=== PATIENT | male | born 1980 | race Caucasian/White ===

== ENCOUNTER 2017-04-11 06:54 | Emergency (ER) | payer SELFPAY ==
[~2017-04-11] VITALS: Ht 188 cm; Wt 97.5 kg
[~2017-04-11 06:54] MED LIST: CYCL10TA2 PO; HYDR-971 PO; PRED50TA PO
--- NOTE | 2017-04-11 07:25 | PHYS DOC ---
Past Medical History Past Medical History: Arthritis Additional Past Medical Histor: "bulging disc in my back" Past Surgical History: Other Additional Past Surgical Histo: Lt wrist,cleft lip/palate Alcohol Use: None Drug Use: None Adult General Chief Complaint Chief Complaint: DIZZY/LIGHT HEADED HPI HPI Patient is a 36 year old male who presents with syncope. Patient states he has been feeling lightheaded for several days. Yesterday he experienced lightheadedness followed by syncope. He reports fall but sustained no injury, denies any pain at this time. He still feels lightheaded and fatigued today. Denies associated chest pain, palpitations, headache, extremity numbness or weakness. Denies vertigo, denies seizure activity or tongue biting/ incontinence. Denies recent illness including nausea, vomiting, diarrhea. 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 The temperatures have been in the 90s recently. Denies any known past medical history. Multiple paternal relatives with fatal MD in their 50s, no known history of sudden cardiac at age less than 50. Does not have a PCP. Review of Systems Review of Systems Constitutional: Denies fever or chills, reports syncope Eyes: Denies change in visual acuity HENT: Denies nasal congestion or sore throat Respiratory: Denies cough or shortness of breath Cardiovascular: Denies chest pain or edema GI: Denies abdominal pain, nausea, vomiting, or diarrhea Musculoskeletal: Denies back pain or joint pain Integument: Denies rash or skin lesions Neurologic: Denies headache, focal weakness or sensory changes Current Medications Current Medications Current Medications Medications (Trade) Dose Ordered Sig/Dillan Start Time Stop Time Status Last Admin Dose Admin Potassium Chloride (KCl Oral Soln) 40 meq 1X ONCE 04/11/17 08:00 04/11/17 08:01 DC 04/11/17 07:58 40 MEQ Sodium Chloride 1,000 ml @ 1,000 mls/hr 1X ONCE 04/11/17 07:30 04/11/17 08:29 DC 04/11/17 07:25 1,000 MLS/HR Allergies Allergies Allergies Coded Allergies Type Severity Reaction Last Updated Verified NSAIDS (Non-Steroidal Anti-Inflamma Allergy Intermediate 07/13/16 Yes codeine Allergy Mild vomiting 03/28/15 Yes Physical Exam Physical Exam Constitutional: Well developed, well nourished, no acute distress, non-toxic appearance. HENT: Normocephalic, atraumatic, bilateral external ears normal, oropharynx moist, no tongue bite [place], nose normal. Eyes: PERRLA, EOMI, conjunctiva normal, no discharge. Neck: supple, no stridor. no midline c-spine tenderness. Cardiovascular: RRR, no murmurs, no edema. Lungs & Thorax: LCTAB, no wheezing, no respiratory distress. Abdomen: soft, nontender, nondistended. Skin: Warm, dry, no erythema, no rash. Back: No tenderness. Extremities: No tenderness, no edema. Neurologic: Alert and oriented X 3, CN2-12 grossly intact, symmetric strength/ sensation to UE & LE, no focal deficits noted. Psychologic: Affect normal, judgement normal, mood normal. Current Patient Data Vital Signs Vital Signs Date Time Temp Pulse Resp B/P (MAP) Pulse Ox O2 Delivery O2 Flow Rate FiO2 04/11/17 08:02 78 19 131/71 (91) 100 Room Air 04/11/17 07:07 99.2 99.2 Lab Values Laboratory Tests Test 04/11/17 07:01 04/11/17 07:19 Urine Collection Type Unknown Urine Color Yellow Urine Clarity Clear Urine pH 6.0 Urine Specific [place] 1.015 Urine Protein Negative mg/dL (NEG-TRACE) Urine Glucose (UA) Negative mg/dL (NEG) Urine Ketones (Stick) Negative mg/dL (NEG) Urine Blood Negative (NEG) Urine Nitrite Negative (NEG) Urine Bilirubin Negative (NEG) Urine Urobilinogen Dipstick 0.2 mg/dL (0.2 mg/dL) Urine Leukocyte Esterase Negative (NEG) Urine RBC 0 /HPF (0-2) Urine WBC 1-4 /HPF (0-4) Urine Squamous Epithelial Cells Occ /LPF Urine Bacteria Few /HPF (0-FEW) Urine Mucus Slight /LPF White Blood Count 8.9 x10^3/uL (4.0-11.0) Red Blood Count 4.44 x10^6/uL (4.30-5.70) Hemoglobin 13.2 g/dL (13.0-17.5) Hematocrit 39.2 % (39.0-53.0) Mean Corpuscular Volume 88 fL (79-100) Mean Corpuscular Hemoglobin 30 pg (25-35) Mean Corpuscular Hemoglobin Concent 34 g/dL (31-37) Red Cell Distribution Width 13.1 % (11.5-14.5) Platelet Count 197 x10^3/uL (140-400) Neutrophils (%) (Auto) 69 % (31-73) Lymphocytes (%) (Auto) 18 % (24-48) L Monocytes (%) (Auto) 9 % (0-9) Eosinophils (%) (Auto) 4 % (0-3) H Basophils (%) (Auto) 1 % (0-3) Neutrophils # (Auto) 6.1 x10^3uL (1.8-7.7) Lymphocytes # (Auto) 1.5 x10^3/uL (1.0-4.8) Monocytes # (Auto) 0.8 x10^3/uL (0.0-1.1) Eosinophils # (Auto) 0.3 x10^3/uL (0.0-0.7) Basophils # (Auto) 0.1 x10^3/uL (0.0-0.2) Sodium Level 141 mmol/L (136-145) Potassium Level 3.1 mmol/L (3.5-5.1) L Chloride Level 102 mmol/L (98-107) Carbon Dioxide Level 30 mmol/L (21-32) Anion Gap 9 (6-14) Blood Urea Nitrogen 15 mg/dL (8-26) Creatinine 0.8 mg/dL (0.7-1.3) Estimated GFR (Cockcroft-Gault) 108.8 BUN/Creatinine Ratio 19 (6-20) Glucose Level 164 mg/dL (70-99) H Calcium Level 8.5 mg/dL (8.5-10.1) Total Bilirubin 0.2 mg/dL (0.2-1.0) Aspartate Amino Transferase (AST) 51 U/L (15-37) H Alanine Aminotransferase (ALT) 47 U/L (16-63) Alkaline Phosphatase 69 U/L (46-116) Troponin I Quantitative < 0.017 ng/mL (0.000-0.055) JQ-Kil-V-Type Natriuretic Peptide 148 pg/mL (0-124) H Total Protein 7.1 g/dL (6.4-8.2) Albumin 3.6 g/dL (3.4-5.0) Albumin/Globulin Ratio 1.0 (1.0-1.7) Laboratory Tests 04/11/17 07:19 Laboratory Tests 04/11/17 07:19 EKG EKG interpreted by me: NSR rate 88, no acute ST/T wave changes, QTc prolonged 478 ms, no ectopy.[] Radiology/Procedures Radiology/Procedures [] Course & Med Decision Making Course & Med Decision Making Pertinent Labs and Imaging studies reviewed. (See chart for details) The patient presents with syncope and lightheadedness. Slightly hypertensive on arrival, improving during his stay. Vitals otherwise stable, ambulates with steady gait without symptoms. Labs significant for hypokalemia. Oral replacement given in the emergency department. QTc slightly prolonged on EKG. No arrhythmia on cardiac telemetry here. Discussed with Parish Denis of cardiology to try to arrange urgent follow-up. He agrees that outpatient workup is appropriate. Patient can call for an appointment with Dr. Jerry and can likely be seen this week. He understands need for follow-up for potential cardiac etiology of syncope. Discussed recommendations with patient. Would recommend rest, minimize heat exposure or take breaks indoors, drink fluids to stay hydrated, eat regular meals. Return to the emergency department for recurrent syncope, severe chest pain or shortness of breath, heart palpitations , any otherwise worsening condition. Discharged home in stable condition. [] Dragon Disclaimer Dragon Disclaimer This electronic medical record was generated, in whole or in part, using a voice recognition dictation system. Departure Departure Impression: Primary Impression: Syncope Disposition: 01 HOME, SELF-CARE Condition: STABLE Referrals: UNKNOWN PCP NAME (PCP) JUD JERRY MD Patient Instructions: Syncope, [id number] Additional Instructions: You were seen in the emergency department today for fainting or syncope. You had low potassium. Your EKG was slightly abnormal. Be sure to drink fluids to stay hydrated. Take breaks in the cool indoors. Be sure to eat regular meals. Please call the cardiology clinic to schedule a follow-up appointment within the next week. Return to the emergency department for recurrent fainting episodes, chest pain, palpitations, any otherwise worsening condition. SHYANN ROSSI MD Apr 11, 2017 07:25
[2017-04-11 07:28] LABS: BASO # 0.1 x10^3/uL (0.0-0.2); BASO % 1 % (0-3); EOS % 4 % (0-3); HEMATOCRIT 39.2 % (39.0-53.0); HEMOGLOBIN 13.2 g/dL (13.0-17.5); LYMPH # 1.5 x10^3/uL (1.0-4.8); LYMPH % 18 % (24-48); MEAN CORPUSCULAR HEMOGLOBIN 30 pg (25-35); MEAN CORPUSCULAR HGB CONC 34 g/dL (31-37); MEAN CORPUSCULAR VOLUME 88 fL (79-100); MONO % 9 % (0-9); NEUT % 69 % (31-73); PLATELET COUNT 197 x10^3/uL (140-400); RED BLOOD COUNT 4.44 x10^6/uL (4.30-5.70); RED CELL DISTRIBUTION WIDTH 13.1 % (11.5-14.5); WHITE BLOOD COUNT 8.9 x10^3/uL (4.0-11.0)
[2017-04-11 07:30] LABS: BILIRUBIN,URINE NEGATIVE (NEG); GLUCOSE,URINE NEGATIVE (NEG); NITRITE,URINE NEGATIVE (NEG); PROTEIN,URINE NEGATIVE (NEG-TRACE); UROBILINOGEN,URINE 0.2 mg/dL (0.2 mg/dL)
[2017-04-11] MEDS ORDERED: IV NORMAL SALINE 1000ML BAG 1,000 ML IV ONE (07:30)
[2017-04-11 07:38] LABS: BACTERIA,URINE FEW /HPF (0-FEW); RBC,URINE 0 /HPF (0-2); SQUAMOUS EPITHELIAL CELL,UR OCC /LPF
[2017-04-11 07:40] LABS: CALCIUM 8.5 mg/dL (8.5-10.1); CREATININE 0.8 mg/dL (0.7-1.3); GFR 108.8; POTASSIUM 3.1 mmol/L (3.5-5.1)
[2017-04-11 07:46] LABS: ALBUMIN 3.6 g/dL (3.4-5.0); TOTAL BILIRUBIN 0.2 mg/dL (0.2-1.0); TOTAL PROTEIN 7.1 g/dL (6.4-8.2)
[2017-04-11] MEDS ORDERED: POTASSIUM CHLORIDE 20 MEQ/15 ML ORAL LIQUID. PO ONE (08:00)
[2017-04-11 08:02] VITALS: BP 131/71
--- NOTE | 2017-04-11 09:28 | EKG ---
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
== END 2017-04-11 08:38 | disposition home or self-care (01) ==
LOC: ER 06:54
DX: R55 Syncope and collapse (principal); M19.90 Unspecified osteoarthritis, unspecified site; Z88.6 Allergy status to analgesic agent; Z88.5 Allergy status to narcotic agent
CPT/HCPCS: 36415; 80053; 81001; 83880; 84484; 85027; 93005; 96360; 99285; J7030

== ENCOUNTER 2017-07-01 19:11 | Emergency (ER) | payer SELFPAY ==
[~2017-07-01] VITALS: Ht 188 cm; Wt 95.3 kg
[2017-07-01 19:17] VITALS: BP 159/86
[2017-07-01 19:40] LABS: BASO # 0.1 x10^3/uL (0.0-0.2); BASO % 1 % (0-3); EOS % 3 % (0-3); HEMATOCRIT 48.3 % (39.0-53.0); HEMOGLOBIN 16.1 g/dL (13.0-17.5); LYMPH # 1.8 x10^3/uL (1.0-4.8); LYMPH % 28 % (24-48); MEAN CORPUSCULAR HEMOGLOBIN 29 pg (25-35); MEAN CORPUSCULAR HGB CONC 33 g/dL (31-37); MEAN CORPUSCULAR VOLUME 88 fL (79-100); MONO % 7 % (0-9); NEUT % 62 % (31-73); PLATELET COUNT 249 x10^3/uL (140-400); RED BLOOD COUNT 5.48 x10^6/uL (4.30-5.70); RED CELL DISTRIBUTION WIDTH 13.9 % (11.5-14.5); WHITE BLOOD COUNT 6.5 x10^3/uL (4.0-11.0)
[2017-07-01 19:54] LABS: CALCIUM 8.8 mg/dL (8.5-10.1); GFR 83.6; POTASSIUM 3.9 mmol/L (3.5-5.1)
[2017-07-01 20:00] LABS: ALBUMIN 3.9 g/dL (3.4-5.0); ALBUMIN/GLOBULIN RATIO 1.1 (1.0-1.7); TOTAL BILIRUBIN 0.3 mg/dL (0.2-1.0); TOTAL PROTEIN 7.4 g/dL (6.4-8.2)
[2017-07-01] MEDS ORDERED: CONTRAST GIVEN MC PRN (20:15)
[2017-07-01] MEDS ORDERED: IV NORMAL SALINE 1000ML BAG 1,000 ML IV ONE (20:15)
[2017-07-01] MEDS ORDERED: ONDANSETRON PF 4 MG/2 ML VIAL. IV ONE (20:15)
[2017-07-01] MEDS ORDERED: HYDROmorphone 2 MG/ML VIAL IV ONE (20:15)
[2017-07-01] MEDS ORDERED: IOHEXOL 300 MG/ML 75 ML VIAL IV ONE (20:30)
[2017-07-01 20:42] LABS: BILIRUBIN,URINE NEGATIVE (NEG); GLUCOSE,URINE NEGATIVE (NEG); NITRITE,URINE NEGATIVE (NEG); PH,URINE 7.5; PROTEIN,URINE NEGATIVE (NEG-TRACE); UROBILINOGEN,URINE 0.2 mg/dL (0.2 mg/dL)
--- NOTE | 2017-07-01 20:42 | RAD ---
CT SCAN OF THE ABDOMEN AND PELVIS WITH IV CONTRAST. History: Abdominal pain Comparison:None. Procedure: Contiguous axial images of the abdomen and pelvis were performed after the administration of 75 cc of Omni 300 IV contrast and without oral contrast. CT Abdomen with contrast: Findings: Liver: Unremarkable Spleen: Unremarkable Pancreas: Unremarkable Adrenal Glands: Unremarkable Kidneys: Unremarkable There is no mass or lymphadenopathy. There is no free air. There is no free fluid. Impression: No acute findings. End Impression CT Pelvis with Contrast: Findings: The urinary bladder appears normal. There is no free fluid. There is no lymphadenopathy. The appendix is normal. Impression: No acute findings. PQRS Compliance Statement: One or more of the following individualized dose reduction techniques were utilized for this examination: 1. Automated exposure control 2. Adjustment of the mA and/or kV according to patient size 3. Use of iterative reconstruction technique Electronically signed by: Jorge Lawrence III, MD (07/01/2017 8:39 PM) [id number]
[2017-07-01 20:51] LABS: BACTERIA,URINE 0 /HPF (0-FEW); RBC,URINE 0 /HPF (0-2); WBC,URINE 0 /HPF (0-4)
[2017-07-01] MEDS ORDERED: OMEP20TA63 PO (21:27)
[2017-07-01] MEDS ORDERED: ONDA4TAB10 SL (21:27)
--- NOTE | 2017-07-01 21:27 | PHYS DOC ---
Past Medical History Past Medical History: Arthritis Additional Past Medical Histor: "bulging disc in my back" Past Surgical History: Other Additional Past Surgical Histo: Lt wrist,cleft lip/palate Alcohol Use: None Drug Use: None Adult General Chief Complaint Chief Complaint: ABDOMINAL PAIN HPI HPI Patient is a 37 year old woman who presents here today secondary to left upper quadrant and left flank abdominal pain that he thinks is secondary to his kidney. Patient denies any past medical history. He reports no history of hypertension diabetes lung liver or kidney problems. Patient has any strokes or MIs in the past. Patient has any kidney stones or kidney infections in the past. Patient denies any prior surgeries. Patient is allergic to any medications. Patient reports he smokes drove her denies any alcohol or drugs. Patient reports she thinks vitamin told him ulcer several years ago. Patient has any fevers shakes chills dysuria frequency urgency hematuria. Patient has any chest pain or shortness of breath. Patient reports she's had nausea and vomiting with no diarrhea. Patient reports his abdominal pain started approximately 2 days ago. Patient has any sick family contacts. Patient denies any hematemesis or coffee-ground emesis. Patient denies any bright red blood per rectum or melena. Patient denies any exacerbating or relieving factors. Review of systems: Constitutional: Denies fever or chills Eyes: Denies change in visual acuity, redness, or eye pain HENT: Denies nasal congestion or sore throat All the other review systems are negative except as documented in the history of present illness portion. Physical exam: Constitutional: Well developed, well nourished, no acute distress, non-toxic appearance. HENT: Normocephalic, atraumatic, bilateral external ears normal, nose normal. Eyes:EOMI, conjunctiva normal, no discharge. Neck: Normal range of motion, no tenderness, supple, no stridor. Cardiovascular:Heart rate regular rhythm, Lungs & Thorax: Bilateral breath sounds clear to auscultation Abdomen: Bowel sounds normal, soft, no tenderness, no masses, no pulsatile masses. Skin: Warm, dry, no erythema, no rash. Back: No tenderness, no CVA tenderness. Extremities: No tenderness, no cyanosis, no clubbing, ROM intact, no edema. Neurologic: Alert and oriented X 3, normal motor function, normal sensory function, no focal deficits noted. Psychologic: Affect normal, judgement normal, mood normal. Patient's ER physical exam is significant for tenderness to palpation to his left flank and left upper quadrant. Patient has normal active bowel sounds. Patient does not present with any signs or symptoms of be consistent with an acute surgical abdomen. Patient's ER workup is been unremarkable for any acute pathology. Patient had a normal CBC, CMP and urinalysis. Patient's lipase was within normal limits. Patient has CT scan with IV contrast which revealed no acute pathology. On the ER the patient was given IV fluids Zofran and Dilaudid with some relief in his discomfort. Assessment and plan Nonspecific abdominal pain with nonspecific left flank pain. Patient is clinically and hemodynamically stable. Patient's ER workup is been unremarkable thus far. Patient has had a normal CBC, CMP and urinalysis. Patient's symptoms are not consistent with appendicitis, small bowel obstruction, pancreatitis, bleeding peptic ulcer. Patient's symptoms may be secondary to gastritis versus viral gastroenteritis. Patient will be discharged home with Prilosec, Zofran, Ultram and will be asked to be reevaluated by his primary care physician in one to 2 days. Return precautions were discussed with the patient. Patient understands he will need to return the ER if symptoms worsen, vomiting up any blood, inability to eat. Is currently in agreement with the plan and does not feel that admission is 14 at this time either. Current Medications Current Medications Current Medications Medications (Trade) Dose Ordered Sig/[facility] Start Time Stop Time Status Last Admin Dose Admin Hydromorphone HCl (Dilaudid) 1 mg 1X ONCE 07/01/17 20:15 07/01/17 20:16 DC 07/01/17 19:53 1 MG Info (Do NOT chart on this entry -- for MONITORING) 1 each PRN DAILY PRN 07/01/17 20:15 07/03/17 20:14 Iohexol (Omnipaque 300 Mg/ml) 75 ml 1X ONCE 07/01/17 20:30 07/01/17 20:31 DC 07/01/17 20:24 75 ML Ondansetron HCl (Zofran) 4 mg 1X ONCE 07/01/17 20:15 07/01/17 20:16 DC 07/01/17 19:52 4 MG Pantoprazole Sodium (Protonix) 40 mg 1X ONCE 07/01/17 21:30 07/01/17 21:31 Sodium Chloride 1,000 ml @ 1,000 mls/hr 1X ONCE 07/01/17 20:15 07/01/17 21:14 07/01/17 19:52 1,000 MLS/HR Allergies Allergies Allergies Coded Allergies Type Severity Reaction Last Updated Verified NSAIDS (Non-Steroidal Anti-Inflamma Allergy Intermediate 07/13/16 Yes codeine Allergy Mild vomiting 03/28/15 Yes Current Patient Data Vital Signs Vital Signs Date Time Temp Pulse Resp B/P (MAP) Pulse Ox O2 Delivery O2 Flow Rate FiO2 07/01/17 19:53 18 100 Room Air 07/01/17 19:17 97.7 85 159/86 (110) 97.7 Lab Values Laboratory Tests Test 07/01/17 19:25 07/01/17 20:35 White Blood Count 6.5 x10^3/uL (4.0-11.0) Red Blood Count 5.48 x10^6/uL (4.30-5.70) Hemoglobin 16.1 g/dL (13.0-17.5) Hematocrit 48.3 % (39.0-53.0) Mean Corpuscular Volume 88 fL (79-100) Mean Corpuscular Hemoglobin 29 pg (25-35) Mean Corpuscular Hemoglobin Concent 33 g/dL (31-37) Red Cell Distribution Width 13.9 % (11.5-14.5) Platelet Count 249 x10^3/uL (140-400) Neutrophils (%) (Auto) 62 % (31-73) Lymphocytes (%) (Auto) 28 % (24-48) Monocytes (%) (Auto) 7 % (0-9) Eosinophils (%) (Auto) 3 % (0-3) Basophils (%) (Auto) 1 % (0-3) Neutrophils # (Auto) 4.0 x10^3uL (1.8-7.7) Lymphocytes # (Auto) 1.8 x10^3/uL (1.0-4.8) Monocytes # (Auto) 0.4 x10^3/uL (0.0-1.1) Eosinophils # (Auto) 0.2 x10^3/uL (0.0-0.7) Basophils # (Auto) 0.1 x10^3/uL (0.0-0.2) Sodium Level 143 mmol/L (136-145) Potassium Level 3.9 mmol/L (3.5-5.1) Chloride Level 104 mmol/L (98-107) Carbon Dioxide Level 33 mmol/L (21-32) H Anion Gap 6 (6-14) Blood Urea Nitrogen 13 mg/dL (8-26) Creatinine 1.0 mg/dL (0.7-1.3) Estimated GFR (Cockcroft-Gault) 83.6 BUN/Creatinine Ratio 13 (6-20) Glucose Level 93 mg/dL (70-99) Calcium Level 8.8 mg/dL (8.5-10.1) Total Bilirubin 0.3 mg/dL (0.2-1.0) Aspartate Amino Transferase (AST) 21 U/L (15-37) Alanine Aminotransferase (ALT) 39 U/L (16-63) Alkaline Phosphatase 95 U/L (46-116) Troponin I Quantitative < 0.017 ng/mL (0.000-0.055) Total Protein 7.4 g/dL (6.4-8.2) Albumin 3.9 g/dL (3.4-5.0) Albumin/Globulin Ratio 1.1 (1.0-1.7) Lipase 153 U/L (73-393) Urine Collection Type Unknown Urine Color Yellow Urine Clarity Clear Urine pH 7.5 Urine Specific [place] <=1.005 Urine Protein Negative mg/dL (NEG-TRACE) Urine Glucose (UA) Negative mg/dL (NEG) Urine Ketones (Stick) Negative mg/dL (NEG) Urine Blood Negative (NEG) Urine Nitrite Negative (NEG) Urine Bilirubin Negative (NEG) Urine Urobilinogen Dipstick 0.2 mg/dL (0.2 mg/dL) Urine Leukocyte Esterase Negative (NEG) Urine RBC 0 /HPF (0-2) Urine WBC 0 /HPF (0-4) Urine Bacteria 0 /HPF (0-FEW) Laboratory Tests 07/01/17 19:25 Laboratory Tests 07/01/17 19:25 EKG EKG [] Radiology/Procedures Radiology/Procedures [] Course & Med Decision Making Course & Med Decision Making Pertinent Labs and Imaging studies reviewed. (See chart for details) [] Dragon Disclaimer Dragon Disclaimer This electronic medical record was generated, in whole or in part, using a voice recognition dictation system. Departure Departure Impression: Primary Impression: Abdominal pain Disposition: 01 HOME, SELF-CARE Condition: IMPROVED Referrals: NO PCP (PCP) Patient Instructions: Abdominal Pain (Nonspecific), Gastritis, Adult Scripts Ondansetron (ZOFRAN ODT) 4 Mg Tab.rapdis 1 TAB SL Q6HRS Y for NAUSEA, #12 TAB Prov: JOSE GREGORY MD 07/01/17 Omeprazole Magnesium (PRILOSEC OTC) 20 Mg Tablet.dr 1 TAB PO DAILY, #30 TAB 3 Refills Prov: JOSE GREGORY MD 07/01/17 JOSE GREGORY MD Jul 01, 2017 21:27
[2017-07-01] MEDS ORDERED: PANTOPRAZOLE 40 MG TABLET.DR. PO ONE (21:30)
--- NOTE | 2017-07-02 06:11 | EKG ---
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
== END 2017-07-01 21:30 | disposition home or self-care (01) ==
LOC: ER 19:11
DX: R10.12 Left upper quadrant pain (principal); R10.9 Unspecified abdominal pain; R11.2 Nausea with vomiting, unspecified; M19.90 Unspecified osteoarthritis, unspecified site; Z88.5 Allergy status to narcotic agent; Z88.6 Allergy status to analgesic agent
CPT/HCPCS: 36415; 74177; 80053; 81001; 83690; 84484; 85025; 93005; 96361; 96374; 96375; 99285; J1170; J2405; J7030; Q9967

== ENCOUNTER 2021-12-24 23:49 | Emergency (ER) | payer SELFPAY ==
[~2021-12-24] VITALS: Ht 185.4 cm; Wt 117.9 kg
[~2021-12-24 23:49] MED LIST changes: +CYCL10TA19 PO; -CYCL10TA2 PO; +HYDR-3164 PO; -HYDR-971 PO; +OMEP20TA63 PO; +ONDA4TAB10 SL; +SULF1TAB24 PO
[2021-12-25] MEDS ORDERED: FUROSEMIDE 40 MG TABLET. PO ONE (03:00)
[2021-12-25] MEDS ORDERED: KETOROLAC 15 MG/ML VIAL. IM ONE (03:00)
[2021-12-25] MEDS ORDERED: FURO-68 PO (03:37)
--- NOTE | 2021-12-25 03:39 | PHYS DOC ---
Past Medical History Past Medical History: Arthritis Additional Past Medical Histor: sciata nerve Past Surgical History: No Surgical History Additional Past Surgical Histo: Lt wrist,cleft lip/palate Smoking Status: Current Every Day Smoker Alcohol Use: None Drug Use: None General Adult EDM: Chief Complaint: LOWER EXTREMITY SWELLING HPI: HPI: Patient is a 41 year old male who presents with left hip pain and left lower extremity swelling. These are both very chronic in nature. The swelling has been going on for several years. He came in today because he was recently admitted to the hospital and felt significant pain relief and was wondering if we could recreate a similar situation. At the time he had left lower extremity cellulitis and was placed on antibiotics and got significant amount of bread dressed. The patient is currently homeless and walks on his feet quite a bit. He has a history of varicose veins in his lower extremities and has chronic hip arthritis as well. Patient denies any trauma or falls Review of Systems: Review of Systems: Constitutional: Denies fever or chills. [] Eyes: Denies change in visual acuity. [] HENT: Denies nasal congestion or sore throat. [] Respiratory: Denies cough or shortness of breath. [] Cardiovascular: Denies chest pain or edema. [] GI: Denies abdominal pain, nausea, vomiting, bloody stools or diarrhea. [] : Denies dysuria. [] Musculoskeletal: Left hip pain and lower extremity swelling Integument: Denies rash. [] Neurologic: Denies headache, focal weakness or sensory changes. [] Endocrine: Denies polyuria or polydipsia. [] Lymphatic: Denies swollen glands. [] Psychiatric: Denies depression or anxiety. [] Heart Score: C/O Chest Pain: No Risk Factors: Risk Factors: DM, Current or recent (<one month) smoker, HTN, HLP, family his tory of CAD, obesity. Risk Scores: Score 0 - 3: 2.5% MACE over next 6 weeks - Discharge Home Score 4 - 6: 20.3% MACE over next 6 weeks - Admit for Clinical Observation Score 7 - 10: 72.7% MACE over next 6 weeks - Early Invasive Strategies Current Medications: Current Medications Medications (Trade) Dose Ordered Sig/Dillan Start Time Stop Time Status Last Admin Dose Admin Furosemide (Lasix) 40 mg 1X ONCE 12/25/21 03:00 12/25/21 03:01 DC 12/25/21 02:46 40 MG Ketorolac Tromethamine (Toradol 15mg Vial) 15 mg 1X ONCE 12/25/21 03:00 12/25/21 03:01 DC 12/25/21 02:45 15 MG Allergies: Allergies: Allergies Coded Allergies Type Severity Reaction Last Updated Verified NSAIDS (Non-Steroidal Anti-Inflamma Allergy Intermediate 12/25/21 Yes codeine Adverse Reaction Mild vomiting 12/25/21 Yes Physical Exam: PE: Constitutional: Well developed, well nourished, no acute distress, non-toxic appearance. [] HENT: Normocephalic, atraumatic, bilateral external ears normal, oropharynx moist, no oral exudates, nose normal. [] Eyes: PERRLA, EOMI, conjunctiva normal, no discharge. [] Neck: Normal range of motion, no tenderness, supple, no stridor. [] Cardiovascular:Heart rate regular rhythm, no murmur [] Lungs & Thorax: Bilateral breath sounds clear to auscultation [] Abdomen: Bowel sounds normal, soft, no tenderness, no masses, no pulsatile masses. [] Skin: Warm, dry, no erythema, no rash. [] Back: No tenderness, no CVA tenderness. [] Extremities: Left lower extremity and right lower extremity both are equal in size and display edema and superficial varicose veins Neurologic: Alert and oriented X 3, normal motor function, normal sensory function, no focal deficits noted. [] Psychologic: Affect normal, judgement normal, mood normal. [] Current Patient Data: Vital Signs: Vital Signs Date Time Temp Pulse Resp B/P (MAP) Pulse Ox O2 Delivery O2 Flow Rate FiO2 12/25/21 01:00 98.8 96 18 157/98 (117) 100 Room Air 98.8 EKG: EKG: [] Radiology/Procedures: Radiology/Procedures: [] Course & Med Decision Making: Course & Med Decision Making Pertinent Labs and Imaging studies reviewed. (See chart for details) [] Dragon Disclaimer: Dragon Disclaimer: This electronic medical record was generated, in whole or in part, using a voice recognition dictation system. Departure Departure Impression: Primary Impression: Bilateral lower leg cellulitis Additional Impression: Hip arthritis Disposition: HOME / SELF CARE / HOMELESS Condition: STABLE Referrals: NO PCP (PCP) Patient Instructions: Peripheral Edema Additional Instructions: Please follow-up with the primary care doctor provided. Scripts Furosemide (LASIX) 40 Mg Tablet 40 MG PO DAILY for 14 Days, #14 TAB Prov: JYOTI OREILLY MD 12/25/21 JYOTI OREILLY MD Dec 25, 2021 03:39
[2021-12-25 04:04] VITALS: BP 142/84
== END 2021-12-25 03:50 | disposition home or self-care (01) ==
LOC: ER 23:49
DX: L03.115 Cellulitis of right lower limb (principal); L03.116 Cellulitis of left lower limb; M16.12 Unilateral primary osteoarthritis, left hip; F17.200 Nicotine dependence, unspecified, uncomplicated; Z88.5 Allergy status to narcotic agent; Z88.6 Allergy status to analgesic agent
CPT/HCPCS: 96372; 99283; J1885